=== PATIENT | female | born 1960 | race Two or more races ===

== ENCOUNTER 2025-05-25 02:01 | Emergency (ER) | payer MEDICAID, OTHER ==
[~2025-05-25] VITALS: Ht 152.4 cm; Wt 90.7 kg
[2025-05-25 03:06] LABS: PLATELET COUNT (AUTO) 334 K/uL (150-450); RED BLOOD CELL COUNT(AUTO) 4.40 MIL/uL (4.0-5.2); RED CELL DISTRIBUTION WIDTH 13.4 % (11.5-15.0); WHITE BLOOD COUNT (AUTO) 7.1 K/uL (4.3-11.0)
[2025-05-25 03:17] LABS: CALCIUM, SERUM 9.4 mg/dL (8.5-10.1); CREATININE 1.0 mg/dL (0.6-1.3); SODIUM SERUM 136.0 mmol/L (136-145); UREA NITROGEN, BLOOD 24.0 mg/dL (7-18)
[2025-05-25 03:22] LABS: INR 1.06 (0.91-1.10)
[2025-05-25 03:43] LABS: ASPARTATE AMINOTRANSFERASE 26.0 U/L (15-37); NT-PRO BNP 129.0 pg/mL (0-125); TOTAL PROTEIN, SERUM 8.2 g/dL (6.4-8.2)
[2025-05-25 04:19] LABS: APPEARANCE,URINE CLEAR (CLEAR); BLOOD, URINE TRACE-INTA Ery/uL (NEGATIVE); LEUKOCYTE ESTERASE ,URINE TRACE (NEGATIVE); NITRITE, URINE NEGATIVE (NEGATIVE); UGLUCOSE NEGATIVE (NEGATIVE)
[2025-05-25 04:45] LABS: ADD URINE CULTURE YES; SQUAMOUS EPITHELIAL CELL,UR Moderate /HPF (None Seen)
[2025-05-25 05:24] VITALS: BP 120/57; TEMP 98; O2SAT 97
== END 2025-05-25 05:25 | disposition home or self-care (01) ==
LOC: EDBD 02:03 → ER 02:03
DX: R53.1 Weakness (principal); R51.9 Headache, unspecified; H53.8 Other visual disturbances; R42 Dizziness and giddiness; I10 Essential (primary) hypertension; M81.0 Age-related osteoporosis without current pathological fracture; Z90.49 Acquired absence of other specified parts of digestive tract; Z95.0 Presence of cardiac pacemaker; Z86.79 Personal history of other diseases of the circulatory system; Z88.8 Allergy status to other drugs, medicaments and biological substances
CPT/HCPCS: 36415; 70450-TC; 71045-TC; 80053-TC; 81001; 82962-TC; 83880; 84484-TC; 85025-TC; 85610-TC; 85730-TC; 87086-TC